=== PATIENT | male | born 1950 | race Two or more races ===

== ENCOUNTER 2017-09-25 04:01 | Inpatient (IN) | payer SELFPAY ==
[~2017-09-25] VITALS: Ht 162.6 cm; Wt 76.8 kg
[2017-09-25] MEDS ORDERED: METHYL SALICYLATE/MENTHOL TOPICAL OINTMENT 29GM TUBE. TP PRN (04:45)
[2017-09-25] MEDS ORDERED: MAGNESIUM HYDROXIDE 2,400 MG/30 ML ORAL.SUSP. PO PRN (04:45)
[2017-09-25] MEDS ORDERED: MAG HYDROX/AL HYDROX/SIMETH 30 ML ORAL.SUSP PO PRN (04:45)
[2017-09-25] MEDS ORDERED: BACL10TA PO (04:51)
[2017-09-25] MEDS ORDERED: DIVA500T9 PO (04:51)
[2017-09-25] MEDS ORDERED: LORA-254 PO ×3 (04:51→05:35)
[2017-09-25] MEDS ORDERED: TAMS0.4C2 PO (04:51)
[2017-09-25] MEDS ORDERED: ASPI-612 PO (04:51)
[2017-09-25] MEDS ORDERED: METF500T5 PO (04:51)
[2017-09-25] MEDS ORDERED: SIMV20TA3 PO (04:51)
[2017-09-25] MEDS ORDERED: GLIP5TAB10 PO (04:51)
[2017-09-25] MEDS ORDERED: AMLO5TAB2 PO (04:51)
[2017-09-25] MEDS ORDERED: LUBI24CA7 PO (04:51)
[2017-09-25] MEDS ORDERED: QUET50TA5 PO (04:51)
[2017-09-25] MEDS ORDERED: LEVO75TA5 PO (04:51)
[2017-09-25] MEDS ORDERED: BENZ-8 PO (04:51)
[2017-09-25] MEDS ORDERED: POLY2500 PO (04:52)
[2017-09-25] MEDS ORDERED: TOLT2CAP PO (04:52)
[2017-09-25] MEDS ORDERED: SERT50TA PO (04:52)
[2017-09-25] MEDS ORDERED: TRAZ50TA15 PO (04:52)
[2017-09-25] MEDS ORDERED: SITA50TA PO (04:52)
[2017-09-25] MEDS ORDERED: traZODone 50 MG TABLET. PO PRN (05:30)
--- NOTE | 2017-09-25 05:33 | NUR ---
Admission Note with Justification for Admission to [facility] Patient admitted to [facility] for protective oversight for emergency stabilization of acute psychiatric crisis. Pt admitted from: Hospital ER Mode of arrival: EMS Accompanied By: EMS Precipitating behaviors that initiated intake and admission: Aggressive behaviors, Hitting head on floor, intrusive with female patients. Description of failure of out patient attempts at stabilization in previous setting list behavior and medication trials: One time order for Catrachita Gilmore, YESSENIA Ativan and Zyprexa Behaviors and assessment findings upon admission: Patient is not fluent in French. Patient states he speaks Farsi. Patient is calm and cooperative with assessment. Patient lung sounds are clear, bowels are active and heart is regular. Patient skin turgor is elastic. Patient has minor abrasions/bruising on legs. Patient points to his toes as if to say they are hurting. Patient requires a single assist when ambulating. Patient is incontinent at times. Patient forgetful of need of assistance when ambulating. Patient currently in day room area. Plan: Admit for protective oversight for adjustment and stabilization of medications, behaviors and mood. Intense treatment regimen including groups, medication adjustments, therapy, consistent regimen for ADL's, self care, and sleep hygiene. Daily monitoring by Inpatient staff, Psychiatry, and Medical Physician.
[2017-09-25 05:45] VITALS: BP 169/94
[2017-09-25] MEDS ORDERED: LORazepam 1 MG TABLET PO PRN (05:45)
[2017-09-25] MEDS: LEVOTHYROXINE 75 MCG TABLET PO SCH (07:25)
[2017-09-25 07:34] LABS: BASO % 0 % (0-3); EOS # 0.2 x10^3/uL (0.0-0.7); EOS % 1 % (0-3); HEMATOCRIT 44.9 % (39.0-53.0); HEMOGLOBIN 15.1 g/dL (13.0-17.5); LYMPH # 1.3 x10^3/uL (1.0-4.8); LYMPH % 13 % (24-48); MEAN CORPUSCULAR HEMOGLOBIN 30 pg (25-35); MEAN CORPUSCULAR HGB CONC 34 g/dL (31-37); MEAN CORPUSCULAR VOLUME 88 fL (79-100); MONO % 9 % (0-9); NEUT # 8.2 x10^3uL (1.8-7.7); NEUT % 77 % (31-73); PLATELET COUNT 245 x10^3/uL (140-400); RED BLOOD COUNT 5.12 x10^6/uL (4.30-5.70); RED CELL DISTRIBUTION WIDTH 16.2 % (11.5-14.5); WHITE BLOOD COUNT 10.7 x10^3/uL (4.0-11.0)
[2017-09-25] MEDS: POLYETHYLENE GLYCOL 3350 17 GM PACKET. PO SCH (07:43)
[2017-09-25] MEDS: OXYBUTYNIN CHLORIDE 5 MG TABLET PO SCH ×2 (07:44→19:42)
[2017-09-25] MEDS: amLODIPine BESYLATE 5 MG TABLET PO SCH (07:44)
[2017-09-25] MEDS: SERTRALINE 50 MG TABLET. PO SCH (07:44)
[2017-09-25] MEDS: metFORMIN 500 MG TABLET PO SCH (07:44)
[2017-09-25] MEDS: ACETAMINOPHEN 325 MG TABLET PO PRN (07:44)
[2017-09-25] MEDS: ASPIRIN ENTERIC COATED 81 MG TABLET.DR. PO SCH (07:44)
[2017-09-25] MEDS: BACLOFEN 10 MG TABLET PO SCH ×3 (07:45→19:42)
[2017-09-25] MEDS: TAMSULOSIN 0.4 MG CAP.ER.24H. PO SCH (07:45)
[2017-09-25] MEDS: glipiZIDE 5 MG TABLET PO SCH (07:45)
[2017-09-25] MEDS: LINAGLIPTIN 5 MG TABLET PO SCH (07:45)
[2017-09-25] MEDS: BENZONATATE 100 MG CAPSULE. PO SCH ×3 (07:46→19:42)
[2017-09-25 07:51] LABS: ALBUMIN 3.8 g/dL (3.4-5.0); ALBUMIN/GLOBULIN RATIO 0.8 (1.0-1.7); CALCIUM 9.1 mg/dL (8.5-10.1); CREATININE 1.4 mg/dL (0.7-1.3); GFR 50.2; POTASSIUM 4.6 mmol/L (3.5-5.1); TOTAL BILIRUBIN 0.5 mg/dL (0.2-1.0); TOTAL PROTEIN 8.3 g/dL (6.4-8.2)
[2017-09-25 07:57] LABS: VAL ACID 22 mcg/mL (50-100)
[2017-09-25] MEDS: LUBIPROSTONE 24 MCG CAPSULE PO SCH ×2 (08:08→17:00)
--- NOTE | 2017-09-25 08:30 | NUR ---
pt up adl in halls. restless, wandering. won't come down to eat. pt took meds with juice. pt tearful. Ativan given.
--- NOTE | 2017-09-25 09:50 | NUR ---
Behavior Intervention Response and Plan: BIRP Note: Behavior: Assumed Care of patient, patient located in Hallway at shift change. Patient exhibited the following behavior Restless, Wandering, Irritable. Brief assessment on rounds of vital signs, medication needs, lab studies, and pain. Treatment plan problems . Intervention: Patient assessed and the following interventions initiated safety checks 15 Minute Checks Cognitive Assessment , Head to toe Assessment , Medications. Response: After interactions and interventions patient responded in the following manner, Disorganized , Wandering ,Compliant. Continue to assess behaviors and condition will continue to monitor throughout the shift as needed. Patient educated on ADL's, and hand hygiene. Plan: Continue to monitor Master Treatment Plan for patient's progress toward short term goals of Decreased Agitation, Decreased Anxiety, [facility] goals to return to previous living setting vs placement. Continue to assess patient for changes in above assessment. Monitor for medication needs, pain, and safety concerns. Hourly rounding performed to ensure safe environment.
--- NOTE | 2017-09-25 10:51 | NUR ---
Insurance Pt initially identified as self pay by [facility]. Upon further investigation by this SW, pt is a resident at [facility] of [facility]. MELISSA contacted MELISSA at [facility] and requested copy of pt's Admission Record that states pt has [facility] for Primary Insurance only. MELISSA submitted this information to registration who ran it thru relay and discovered the insurance is currently inactive as of 08/17/17. MELISSA contacted [facility] to speak w/a in the billing department and was told the person was not in the office today. SW will f/u on Thursday to inquire if the facility has already resubmitted for the insurance to be reinstated. This facility is out of network with [facility]. This SW is unable to obtain any kind of authorization for this stay, or request a single case agreement at this time, or request a transfer to another facility that is in network for the pt as pt's insurance is currently inactive. Pt will be registered as self pay until the insurance has been reinstated. [facility] is able to retro bill once reinstated, however, w/o prior authorization for this stay, it is unclear if this stay will be covered. It should also be noted when this SW spoke w/MELISSA Soria at [facility], MELISSA was told pt's family dropped pt off at [facility] in May, and has rarely visited or contacted pt since. Estella stated family has very little involvement w/pt and this has created much of the pt's depression.
--- NOTE | 2017-09-25 11:15 | NUR ---
pt restless and tearful. unsteady on feet. not using walker and if he does is throwing it. Pt wanted to use phone. called contact numbers and pt refused to talk on phone but wanted the phone to try and dial numbers. attempted to keep him day room. becoming agitated and throwing self to floor. almost fell to floor. 1:1 ordered and zydis ordered.
--- NOTE | 2017-09-25 11:30 | NUR ---
zydis given assisted to bed. very resistive.
[2017-09-25 14:07] LABS: THYROID STIM HORMONE (TSH) 5.424 uIU/mL (0.358-3.740)
--- NOTE | 2017-09-25 14:30 | NUR ---
MELISSA has attempted to contact pt's dtr, Tessie @ [phone] and pt's son who resides in [place] at [phone] to discuss plans as pt does not have insurance coverage at this time. MELISSA has also contacted [facility] to further discuss the need for pt to return to the facility today due to pt's lack of insurance and the discuss had earlier w/pt's son, Nehemias. Nehemias eluded to the family's inability to pay privately for pt to remain at this facility. Nehemias was concerned pt's Medicaid had lapsed and he would be private pay while at this facility. Nehemias was very thankful for this SW's phone call to discuss pt's private pay status as pt's would be unable to afford pt's stay at this time. MELISSA spoke w/SEGUNDO Johnson at [facility] regarding pt's return today and she stated she would return a call to this SW.
--- NOTE | 2017-09-25 15:00 | NUR ---
MELISSA discussed concerns w/Dr. Diaz regarding pt's self pay status and mental health needs while on this unit. Dr. Diaz does provide psychiatric services at [facility] and would be able to follow pt at the facility. Dr. Diaz will provide initial assessment and MELISSA will f/u w/[facility] w/plans.
--- NOTE | 2017-09-25 15:35 | NUR ---
MELISSA received a return call from Britta, Charge Nurse at [facility] to further discuss dc plans for pt to return to [facility] today due to pt's family's inability to privately pay while at this facility. Britta stated her dismay w/this facility for refusing to provided a needed service for the pt due to his lack of insurance. This SW was VERY clear and repeated several times this facility was NOT refusing to provide services to this pt, rather, the pt's son, Nehemias, stated they would not be able to afford for pt to remain private pay at this facility for services that could be managed w/medication adjustments at the facility. SW had informed Nehemias the Psychiatrist at this facility also provides services at [facility] and could follow pt upon return to the facility. Pt has been comfortable all afternoon after receiving medications and would have a slight medication adjustment upon returning back to the facility. Per Dr. Diaz, pt would be fine returning to the facility today. Britta presented argumentative w/this SW and stated they would not be able to accept pt back as he is a danger to himself and others. MELISSA stated pt is their resident and they were obligated to accept pt back upon our dc. Britta stated she would be contacting pt's family and discussing their concerns and possibly discharge plans for pt. SW reminded Britta they had to provide family w/a 30 day notice to family if they felt they could not meet pt's needs. Britta stated this hospital was not meeting pt's needs and then hung up on this SW.
[2017-09-25 15:52] VITALS: BP 94/59
--- NOTE | 2017-09-25 15:59 | NUR ---
MELISSA has worked on this case all day to advocate on behalf of pt's rights for mental health needs and financial safety. Pt's [employer] lapsed at the end of July. MELISSA has attempted to contact pt's family to inquired about alternative insurance. Melissa was provided w/a face sheet from [facility] that included phone numbers for pt's 2 sons, Joseph and Nehemias. The numbers are different then the numbers provided at intake. SW has called the numbers and left messages. SW received a return message from a number originally provided at intake and was told by the person it was not a family member and ultimately was a wrong number. SW contacted Registration and had the number removed. MELISSA then contacted Nehemias at [phone] who resides in [place]. MELISSA explained the current situation and requested assistance in reaching pt's family who resides in the [facility]. Nehemias was unaware of pt's recent insurance lapse and stated pt did not have any other form of payment for this hospital stay. Pt's does not speak Uzbek and would require his sister, Tessie @ [phone] to assist in translating while speaking w/this MELISSA. Nehemias was very thankful for this SW contacting him to further discuss the financial concerns as they would not be able to afford pt's stay at this hospital w/o pt's Medicaid being active. Nehemias will contact his mother to explain the current situation and then contact his sister, Tessie and provide this SW's contact information for her to call and f/u to continue to work on possible dc plan. MELISSA stated if pt continues to remain at this facility, he would be private pay. A payment plan could be arranged w/the family and SW could provide a contact phone number for pt's and sister to call for additional information or this SW could make arrangements for the pt to return to [facility] today.
--- NOTE | 2017-09-25 16:02 | PDOC ---
Exam Note: Will Note: Please also refer to the separate dictated note~for this date of service dictated separately.~Patient seen individually. Discussed the patient with Nursing staff reviewed the chart.~Reviewed interim history and current functioning. Reviewed vital signs,~Labs/ Radiology~and current medications noted below. Continue current treatment with the changes noted in the dictated addendum note Assessment: Vital Signs: Vital Signs Date Time Temp Pulse Resp B/P (MAP) Pulse Ox O2 Delivery O2 Flow Rate FiO2 09/25/17 15:52 98.4 82 16 94/59 (71) 100 Labs: Laboratory Tests Test 09/25/17 07:08 09/25/17 07:21 White Blood Count 10.7 x10^3/uL (4.0-11.0) Red Blood Count 5.12 x10^6/uL (4.30-5.70) Hemoglobin 15.1 g/dL (13.0-17.5) Hematocrit 44.9 % (39.0-53.0) Mean Corpuscular Volume 88 fL (79-100) Mean Corpuscular Hemoglobin 30 pg (25-35) Mean Corpuscular Hemoglobin Concent 34 g/dL (31-37) Red Cell Distribution Width 16.2 % (11.5-14.5) H Platelet Count 245 x10^3/uL (140-400) Neutrophils (%) (Auto) 77 % (31-73) H Lymphocytes (%) (Auto) 13 % (24-48) L Monocytes (%) (Auto) 9 % (0-9) Eosinophils (%) (Auto) 1 % (0-3) Basophils (%) (Auto) 0 % (0-3) Neutrophils # (Auto) 8.2 x10^3uL (1.8-7.7) H Lymphocytes # (Auto) 1.3 x10^3/uL (1.0-4.8) Monocytes # (Auto) 1.0 x10^3/uL (0.0-1.1) Eosinophils # (Auto) 0.2 x10^3/uL (0.0-0.7) Basophils # (Auto) 0.0 x10^3/uL (0.0-0.2) Sodium Level 139 mmol/L (136-145) Potassium Level 4.6 mmol/L (3.5-5.1) Chloride Level 103 mmol/L (98-107) Carbon Dioxide Level 25 mmol/L (21-32) Anion Gap 11 (6-14) Blood Urea Nitrogen 23 mg/dL (8-26) Creatinine 1.4 mg/dL (0.7-1.3) H Estimated GFR (Cockcroft-Gault) 50.2 BUN/Creatinine Ratio 16 (6-20) Glucose Level 237 mg/dL (70-99) H Calcium Level 9.1 mg/dL (8.5-10.1) Magnesium Level 2.0 mg/dL (1.8-2.4) Iron Level 47 ug/dL (65-175) L Total Iron Binding Capacity 343 ug/dL (250-450) Iron Saturation 14 % (15-34) L Total Bilirubin 0.5 mg/dL (0.2-1.0) Aspartate Amino Transferase (AST) 15 U/L (15-37) Alanine Aminotransferase (ALT) 23 U/L (16-63) Alkaline Phosphatase 88 U/L (46-116) Total Protein 8.3 g/dL (6.4-8.2) H Albumin 3.8 g/dL (3.4-5.0) Albumin/Globulin Ratio 0.8 (1.0-1.7) L Triglycerides Level 114 mg/dL (0-150) Cholesterol Level 164 mg/dL (0-200) LDL Cholesterol, Calculated 96 mg/dL (0-100) VLDL Cholesterol, Calculated 22 mg/dL (0-40) Non-HDL Cholesterol Calculated 118 mg/dL (0-129) HDL Cholesterol 46 mg/dL (40-60) Cholesterol/HDL Ratio 3.0 Thyroid Stimulating Hormone (TSH) 5.424 uIU/mL (0.358-3.740) Valproic Acid Level 22 mcg/mL (50-100) L Valproic Acid Last Dose Date 09/24/2017 Valproic Acid Last Dose Time 2100 Glucose (Fingerstick) 266 mg/dL (70-99) H Current Medications: Meds: Current Medications Acetaminophen (Tylenol) 650 mg PRN Q6HRS PRN PO PAIN / TEMP Last administered on 09/25/17at 07:44; Start 09/25/17 at 04:45 Multi-Ingredient Ointment (Analgesic [place]) 1 radha PRN QID PRN TP MUSCLE PAIN; Start 09/25/17 at 04:45 Al Hydroxide/Mg Hydroxide (Mylanta Plus Xs) 15 ml PRN AFTMEALHC PRN PO DYSPEPSIA; Start 09/25/17 at 04:45 Magnesium Hydroxide (Milk Of Magnesia) 2,400 mg PRN QHS PRN PO CONSTIPATION; Start 09/25/17 at 04:45 Sertraline HCl (Zoloft) 150 mg DAILY PO Last administered on 09/25/17at 07:44; Start 09/25/17 at 09:00 Divalproex Sodium (Depakote) 500 mg BID PO ; Start 09/26/17 at 09:00; Stop at 09:00; Status DC Quetiapine Fumarate (SEROquel) 100 mg QHS PO ; Start 09/25/17 at 21:00 Trazodone HCl (Desyrel) 50 mg PRN QHS PRN PO INSOMNIA; Start 09/25/17 at 05:30 Lorazepam (Ativan) 1 mg PRN BID PRN PO ANXIETY / AGITATION Last administered on 09/25/17at 08:00; Start 09/25/17 at 05:45 Levothyroxine Sodium (Synthroid) 75 mcg DAILY06 PO Last administered on 07:25; Start 09/25/17 at 06:00 Lubiprostone (Amitiza) 24 mcg BIDWMEALS PO Last administered on 09/25/17at 08:08 ; Start 09/25/17 at 08:00 Tamsulosin HCl (Flomax) 0.4 mg DAILY PO Last administered on 09/25/17at 07:45; Start 09/25/17 at 09:00 Amlodipine Besylate (Norvasc) 5 mg DAILY PO Last administered on 09/25/17 07:44 ; Start 09/25/17 at 09:00 Aspirin (Aspirin Enteric Coated) 81 mg DAILYWBKFT PO Last administered on at 07:44; Start 09/25/17 at 08:00 Baclofen (Lioresal) 10 mg TID PO Last administered on 09/25/17 15:01; Start 09/25/17 at 09:00 Benzonatate (Tessalon Perle) 100 mg [id number] PO Last administered on 6/8/18at 15: 01; Start 09/25/17 at 09:00 Glipizide (Glucotrol) 2.5 mg DAILY08 PO Last administered on 09/25/17at 07:45; Start 09/25/17 at 08:00 Metformin HCl (Glucophage) 500 mg DAILY08 PO Last administered on 09/25/17at 07: 44; Start 09/25/17 at 08:00 Polyethylene Glycol (miraLAX) 17 gm DAILY PO Last administered on 09/25/17at 07: 43; Start 09/25/17 at 09:00 Simvastatin (Zocor) 20 mg HS PO ; Start 09/25/17 at 21:00 Linagliptin (Tradjenta) 5 mg DAILY PO Last administered on 09/25/17at 07:45; Start 09/25/17 at 09:00 Oxybutynin Chloride (Ditropan) 5 mg BID PO Last administered on 09/25/17at 07:44 ; Start 09/25/17 at 09:00 Olanzapine (ZyPREXA ZYDIS) 2.5 mg PRN Q2HR PRN PO ANXIETY / AGITATION Last administered on 09/25/17at 11:31; Start 09/25/17 at 11:15 Divalproex Sodium (Depakote) 500 mg DAILY PO ; Start 09/26/17 at 09:00 Divalproex Sodium (Depakote) 750 mg QHS PO ; Start 09/25/17 at 21:00 Quetiapine Fumarate (SEROquel) 25 mg BID@0900,1700 PO ; Start 09/25/17 at 17:00 Active Scripts Active Reported Lorazepam 1 Mg Tablet 1 Tab PO BID PRN Detrol La (Tolterodine Tartrate) 2 Mg Cap.er.24h 2 Mg PO DAILY Trazodone Hcl 50 Mg Tablet 50 Mg PO QHS PRN Polyethylene Glycol 3350 2,500 Gm Powder 17 Gm PO DAILY Januvia (Sitagliptin Phosphate) 50 Mg Tablet 50 Mg PO DAILY Zoloft (Sertraline Hcl) 50 Mg Tablet 150 Mg PO DAILY Simvastatin 20 Mg Tablet 20 Mg PO HS Benzonatate 100 Mg Capsule 100 Mg PO TID Aspirin Ec (Aspirin) 81 Mg Tablet.dr 81 Mg PO DAILY Seroquel (Quetiapine Fumarate) 50 Mg Tablet 100 Mg PO QHS Amlodipine Besylate 5 Mg Tablet 5 Mg PO DAILY Divalproex Sodium 500 Mg Tablet.dr 500 Mg PO BID Levothyroxine Sodium 75 Mcg Tablet 75 Mcg PO DAILY06 Baclofen 10 Mg Tablet 10 Mg PO TID Metformin Hcl 500 Mg Tablet 500 Mg PO DAILY Amitiza (Lubiprostone) 24 Mcg Capsule 24 Mcg PO BID Tamsulosin Hcl 0.4 Mg Cap.er.24h 0.4 Mg PO DAILY Glipizide 5 Mg Tablet 2.5 Mg PO DAILY I have reviewed the current psychotropics carefully including drug interactions. Risk benefit ratio favors no change other than as noted in my dictated progress note. Diagnosis: Problems: (1) Anxiety disorder (2) Impulse control disorder (3) Dementia, vascular, with delusions (4) Dementia, vascular, with depression (5) Dementia in Alzheimer's disease with delusions (6) Dementia in Alzheimer's disease with depression SARAH BLANTON MD Sep 25, 2017 16:01
[2017-09-25] MEDS: QUEtiapine 25 MG TABLET. PO SCH (17:00)
--- NOTE | 2017-09-25 17:07 | NUR ---
pt has been restless and wandering. 1:1 staff at side. pt incontinent of bladder. resting quietly in bed.
--- NOTE | 2017-09-25 17:22 | NUR ---
MELISSA has been unable to contact any of pt's family members to confirm pt's private pay status and wishes to return pt to facility today. MELISSA left a message for pt's son, Nehemias @ [phone] inquiring if he was able to reach pt's or dtr to further discuss issue w/private pay status. MELISSA was also unable to make transportation arrangements w/[facility] as Britta, Charge Nurse at [facility] hung up on earlier this afternoon. Violette, Former Hand also attempted to contact [facility]man to confirm approval for this facility to provide payment for transportation of [facility] declines to transport patient today. Violette was unable to reach [facility] for approval at this time. Due to confirmation from family on private payment or return to facility and transportation either by [facility] or this facility, pt will remain at this facility until further dc planning can be arranged.
[2017-09-25] MEDS: QUEtiapine 100 MG TABLET. PO SCH (19:44)
[2017-09-25] MEDS: SIMVASTATIN 20 MG TABLET PO SCH (19:44)
[2017-09-25] MEDS: DIVALPROEX SODIUM 250 MG TABLET.DR. PO SCH (19:44)
--- NOTE | 2017-09-25 20:00 | NUR ---
Behavior Intervention Response and Plan: BIRP Note: Behavior: Assumed Care of patient, patient located in Day Room at shift change. Patient exhibited the following behavior Calm, Compliant, Appropriate. Brief assessment on rounds of vital signs, medication needs, lab studies, and pain. Treatment plan problems 1. Intervention: Patient assessed and the following interventions initiated safety checks 1-1 Observation Cognitive Assessment , Head to toe Assessment , Call wright in reach. Response: After interactions and interventions patient responded in the following manner, Calm , Disorganized ,Sleeping. Continue to assess behaviors and condition will continue to monitor throughout the shift as needed. Patient educated on ADL's, and hand hygiene. Plan: Continue to monitor Master Treatment Plan for patient's progress toward short term goals of Decreased Agitation, Decreased Anxiety, correction goals to return to previous living setting vs placement. Continue to assess patient for changes in above assessment. Monitor for medication needs, pain, and safety concerns. Hourly rounding performed to ensure safe environment.
[2017-09-25 22:11] LABS: THYROXINE 5.3 ug/dL (4.5-12.0)
--- NOTE | 2017-09-25 23:11 | PDOC ---
Exam Note: Will Note: Please also refer to the separate dictated note~for this date of service dictated separately.~Patient seen individually. Discussed the patient with Nursing staff reviewed the chart.~Reviewed interim history and current functioning. Reviewed vital signs,~Labs/ Radiology~and current medications noted below. Continue current treatment with the changes noted in the dictated addendum note Assessment: Vital Signs: Vital Signs Date Time Temp Pulse Resp B/P (MAP) Pulse Ox O2 Delivery O2 Flow Rate FiO2 09/25/17 15:52 98.4 82 16 94/59 (71) 100 Labs: Laboratory Tests Test 09/25/17 07:08 09/25/17 07:21 White Blood Count 10.7 x10^3/uL (4.0-11.0) Red Blood Count 5.12 x10^6/uL (4.30-5.70) Hemoglobin 15.1 g/dL (13.0-17.5) Hematocrit 44.9 % (39.0-53.0) Mean Corpuscular Volume 88 fL (79-100) Mean Corpuscular Hemoglobin 30 pg (25-35) Mean Corpuscular Hemoglobin Concent 34 g/dL (31-37) Red Cell Distribution Width 16.2 % (11.5-14.5) H Platelet Count 245 x10^3/uL (140-400) Neutrophils (%) (Auto) 77 % (31-73) H Lymphocytes (%) (Auto) 13 % (24-48) L Monocytes (%) (Auto) 9 % (0-9) Eosinophils (%) (Auto) 1 % (0-3) Basophils (%) (Auto) 0 % (0-3) Neutrophils # (Auto) 8.2 x10^3uL (1.8-7.7) H Lymphocytes # (Auto) 1.3 x10^3/uL (1.0-4.8) Monocytes # (Auto) 1.0 x10^3/uL (0.0-1.1) Eosinophils # (Auto) 0.2 x10^3/uL (0.0-0.7) Basophils # (Auto) 0.0 x10^3/uL (0.0-0.2) Sodium Level 139 mmol/L (136-145) Potassium Level 4.6 mmol/L (3.5-5.1) Chloride Level 103 mmol/L (98-107) Carbon Dioxide Level 25 mmol/L (21-32) Anion Gap 11 (6-14) Blood Urea Nitrogen 23 mg/dL (8-26) Creatinine 1.4 mg/dL (0.7-1.3) H Estimated GFR (Cockcroft-Gault) 50.2 BUN/Creatinine Ratio 16 (6-20) Glucose Level 237 mg/dL (70-99) H Calcium Level 9.1 mg/dL (8.5-10.1) Magnesium Level 2.0 mg/dL (1.8-2.4) Iron Level 47 ug/dL (65-175) L Total Iron Binding Capacity 343 ug/dL (250-450) Iron Saturation 14 % (15-34) L Total Bilirubin 0.5 mg/dL (0.2-1.0) Aspartate Amino Transferase (AST) 15 U/L (15-37) Alanine Aminotransferase (ALT) 23 U/L (16-63) Alkaline Phosphatase 88 U/L (46-116) Total Protein 8.3 g/dL (6.4-8.2) H Albumin 3.8 g/dL (3.4-5.0) Albumin/Globulin Ratio 0.8 (1.0-1.7) L Triglycerides Level 114 mg/dL (0-150) Cholesterol Level 164 mg/dL (0-200) LDL Cholesterol, Calculated 96 mg/dL (0-100) VLDL Cholesterol, Calculated 22 mg/dL (0-40) Non-HDL Cholesterol Calculated 118 mg/dL (0-129) HDL Cholesterol 46 mg/dL (40-60) Cholesterol/HDL Ratio 3.0 Vitamin B12 Level 446 pg/mL (247-911) 25-Hydroxy Vitamin D Total 8.6 ng/mL (30-100) L Thyroid Stimulating Hormone (TSH) 5.424 uIU/mL (0.358-3.740) Thyroxine (T4) 5.3 ug/dL (4.5-12.0) Total Triiodothyronine (TT3) 88 ng/dL (71-180) Valproic Acid Level 22 mcg/mL (50-100) L Valproic Acid Last Dose Date 09/24/2017 Valproic Acid Last Dose Time 2100 Treponema pallidum Antibody Nonreactive (Nonreactive) Glucose (Fingerstick) 266 mg/dL (70-99) H Current Medications: Meds: Current Medications Acetaminophen (Tylenol) 650 mg PRN Q6HRS PRN PO PAIN / TEMP Last administered on 09/25/17at 07:44; Start 09/25/17 at 04:45 Multi-Ingredient Ointment (Analgesic [place]) 1 radha PRN QID PRN TP MUSCLE PAIN; Start 09/25/17 at 04:45 Al Hydroxide/Mg Hydroxide (Mylanta Plus Xs) 15 ml PRN AFTMEALHC PRN PO DYSPEPSIA; Start 09/25/17 at 04:45 Magnesium Hydroxide (Milk Of Magnesia) 2,400 mg PRN QHS PRN PO CONSTIPATION; Start 09/25/17 at 04:45 Sertraline HCl (Zoloft) 150 mg DAILY PO Last administered on 09/25/17at 07:44; Start 09/25/17 at 09:00 Divalproex Sodium (Depakote) 500 mg BID PO ; Start 09/26/17 at 09:00; Stop at 09:00; Status DC Quetiapine Fumarate (SEROquel) 100 mg QHS PO Last administered on 09/25/17at 19: 44; Start 09/25/17 at 21:00 Trazodone HCl (Desyrel) 50 mg PRN QHS PRN PO INSOMNIA; Start 09/25/17 at 05:30 Lorazepam (Ativan) 1 mg PRN BID PRN PO ANXIETY / AGITATION Last administered on 09/25/17at 08:00; Start 09/25/17 at 05:45 Levothyroxine Sodium (Synthroid) 75 mcg DAILY06 PO Last administered on at 07:25; Start 09/25/17 at 06:00 Lubiprostone (Amitiza) 24 mcg BIDWMEALS PO Last administered on 09/25/17 08:08 ; Start 09/25/17 at 08:00 Tamsulosin HCl (Flomax) 0.4 mg DAILY PO Last administered on 09/25/17at 07:45; Start 09/25/17 at 09:00 Amlodipine Besylate (Norvasc) 5 mg DAILY PO Last administered on 09/25/17at 07:44 ; Start 09/25/17 at 09:00 Aspirin (Aspirin Enteric Coated) 81 mg [id number] PO Last administered on 07:44; Start 09/25/17 at 08:00 Baclofen (Lioresal) 10 mg TID PO Last administered on 09/25/17 19:42; Start 09/25/17 at 09:00 Benzonatate (Tessalon Perle) 100 mg DLM231 PO Last administered on 09/25/17 19: 42; Start 09/25/17 at 09:00 Glipizide (Glucotrol) 2.5 mg DAILY08 PO Last administered on 09/25/17 07:45; Start 09/25/17 at 08:00 Metformin HCl (Glucophage) 500 mg DAILY08 PO Last administered on 09/25/17 07: 44; Start 09/25/17 at 08:00 Polyethylene Glycol (miraLAX) 17 gm DAILY PO Last administered on 09/25/17 07: 43; Start 09/25/17 at 09:00 Simvastatin (Zocor) 20 mg HS PO Last administered on 09/25/17 19:44; Start 09/25 at 21:00 Linagliptin (Tradjenta) 5 mg DAILY PO Last administered on 09/25/17 07:45; Start 09/25/17 at 09:00 Oxybutynin Chloride (Ditropan) 5 mg BID PO Last administered on 09/25/17 19:42 ; Start 09/25/17 at 09:00 Olanzapine (ZyPREXA ZYDIS) 2.5 mg PRN Q2HR PRN PO ANXIETY / AGITATION Last administered on 09/25/17at 11:31; Start 09/25/17 at 11:15 Divalproex Sodium (Depakote) 500 mg DAILY PO ; Start 09/26/17 at 09:00 Divalproex Sodium (Depakote) 750 mg QHS PO Last administered on 09/25/17 19:44 ; Start 09/25/17 at 21:00 Quetiapine Fumarate (SEROquel) 25 mg BID@0900,1700 PO ; Start 09/25/17 at 17:00 Active Scripts Active Reported Lorazepam 1 Mg Tablet 1 Tab PO BID PRN Detrol La (Tolterodine Tartrate) 2 Mg Cap.er.24h 2 Mg PO DAILY Trazodone Hcl 50 Mg Tablet 50 Mg PO QHS PRN Polyethylene Glycol 3350 2,500 Gm Powder 17 Gm PO DAILY Januvia (Sitagliptin Phosphate) 50 Mg Tablet 50 Mg PO DAILY Zoloft (Sertraline Hcl) 50 Mg Tablet 150 Mg PO DAILY Simvastatin 20 Mg Tablet 20 Mg PO HS Benzonatate 100 Mg Capsule 100 Mg PO TID Aspirin Ec (Aspirin) 81 Mg Tablet.dr 81 Mg PO DAILY Seroquel (Quetiapine Fumarate) 50 Mg Tablet 100 Mg PO QHS Amlodipine Besylate 5 Mg Tablet 5 Mg PO DAILY Divalproex Sodium 500 Mg Tablet.dr 500 Mg PO BID Levothyroxine Sodium 75 Mcg Tablet 75 Mcg PO DAILY06 Baclofen 10 Mg Tablet 10 Mg PO TID Metformin Hcl 500 Mg Tablet 500 Mg PO DAILY Amitiza (Lubiprostone) 24 Mcg Capsule 24 Mcg PO BID Tamsulosin Hcl 0.4 Mg Cap.er.24h 0.4 Mg PO DAILY Glipizide 5 Mg Tablet 2.5 Mg PO DAILY I have reviewed the current psychotropics carefully including drug interactions. Risk benefit ratio favors no change other than as noted in my dictated progress note. Diagnosis: Problems: (1) Anxiety disorder (2) Impulse control disorder (3) Dementia, vascular, with depression (4) Dementia, vascular, with delusions (5) Dementia in Alzheimer's disease with depression (6) Dementia in Alzheimer's disease with delusions SARAH BLANTON MD Sep 25, 2017 23:11
--- NOTE | 2017-09-25 23:20 | HP ---
ADMIT DATE: 09/25/2017 PSYCHIATRIC ADMISSION HISTORY/DISCHARGE SUMMARY IDENTIFYING DATA: The patient is a 67-year-old male of descent, referred to us from the [facility] Emergency Room where he presented from [facility] in [place], [place] on account of increasingly aggressive behaviors, hitting his head on the floor, intrusive with female resident. Per social service staff report, retirement staff had called us earlier in the day on account of the above symptoms. The patient was quite confused, did not have an active power of ip technology transactions attorney and while this was being clarified, he was sent to the Emergency Room. 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 The patient does not speak any Syriac. Reportedly, speaks Farsi and the history was obtained through a [employer] radha. CHIEF COMPLAINT: "Thank you." The patient responded after I introduced myself and told him who I was and wanted to get a history from him. Much of the information was obtained from social service and nursing staff including Violette Ramos, RN nurse plant production manager, Diana social service staff and nursing staff including Abdi who was the nursing staff middle of last night, gathering information from the ER in the retirement. HISTORY OF PRESENT ILLNESS: Reportedly, the patient has been residing at the retirement for a short period of time. Over the last brief period, he has been getting more frustrated at the retirement, quite confused and reportedly has been hitting his head on the floor, aggressive and intrusive with female residents. He has had some sleep and appetite changes. Adjustments were made in his psychotropics. He did receive one time order for Haldol 3 mg and then Seroquel was initiated 50 mg at bedtime and Ativan was discontinued as it seemed to be causing paradoxical disinhibition. Zyprexa was added and he was also on Depakote Sprinkles 250 mg twice a day, 500 mg at bedtime and valproic acid level at the time of admission to our unit is subtherapeutic. No clear history of bipolar disorder or homicidal ideation. At the time I met him, there was no evidence of suicidal ideation and for several hours prior to that while on the unit, he has been fairly cooperative with no behaviors reflective of active danger to self or others. He was somewhat agitated earlier in the morning and received Zyprexa with good effect. PAST PSYCHIATRIC HISTORY: As above. MEDICAL HISTORY: Hypertension, diabetes mellitus, kidney disease, muscle weakness. Accu-Cheks daily. DIET: Regular. Ambulates x 1 assist. UA is negative. DRUG ALLERGIES: Negative. CODE STATUS: Full code. FAMILY HISTORY: Noncontributory. SOCIAL HISTORY: The patient does not have a power of ip technology transactions attorney and signed by himself, though he is quite confused at the time of my evaluation. He has a daughter and a son who is the social service staff I contacted during this brief hospitalization. No alcohol or drug abuse, physical, sexual or elder abuse history is noted. Not known to be a perpetrator. MENTAL STATUS EXAM: The patient was seen individually in the evening of 09/25/2017. He is oriented to himself; otherwise, pleasant, often verbal responses monosyllabic. He repeatedly said "thank you" to me as I sat with him for the evaluation. Insight, judgment, recent and remote memory, attention, concentration, fund of knowledge poor, consistent with his diagnosis. IMPRESSION: Major neurocognitive disorder, possibly vascular with delusion, depression, behavioral disturbance; anxiety disorder, unspecified; impulse control disorder, unspecified. Rest as above. PLAN/CLINICAL COURSE: I met with the patient evening of 09/25/2017. Prior to this about an hour earlier, I had been called by Violette Ramos, RN nurse plant production manager and Diana Humphreys, social service staff. The patient has been fairly compliant, cooperative on the unit, confused, unable to participate in groups or other activities because of his language deficits. Communication with nursing staff is very limited again because of his communication problems due to Farsi language. No suicidal or homicidal ideation noted. The patient's valproic acid level is subtherapeutic and we will increase the Depakote to 500 mg in a.m., 750 mg at bedtime. CBC, CMP, valproic acid, ammonia level to be checked in one week. We will also continue Seroquel 50 mg at bedtime and start Seroquel 25 mg at 09:00 a.m. and 1 p.m. to 5 p.m. to help with his mood lability, which is already improved and fairly stable on the unit. Given the patient's lack of ability to participate in groups and other activities on the unit due to language problems and the fact that he is not aggressive with no active suicidal ideation and otherwise stable, further ongoing treatment can be provided back at the retirement and staff will coordinate this. DISCHARGE MEDICATIONS: Please refer to the MRAD. FOLLOWUP: Outpatient psychiatric and medical followup at the retirement. SARAH BLANTON MD DR: CHRIS/sofya JOB#: [id number] / [id number]
--- NOTE | 2017-09-25 23:51 | CONS ---
DATE OF CONSULTATION: 09/25/2017 REASON FOR CONSULTATION: Medical management. HISTORY OF PRESENT ILLNESS: The patient is a 67-year-old [place] descent who speaks only Korean language who apparently resides at [facility] who was [facility] after he was evaluated in [facility] Emergency Room on the account of hitting his head on the floor and arambula and increased aggression. All this in a background of impulse control disorder and unfortunately, the language barrier makes it difficult to understand what he feels and why he is doing. PAST MEDICAL HISTORY: Significant for hypertension, diabetes, chronic kidney disease, and muscle weakness. PAST SURGICAL HISTORY: Unobtainable. FAMILY HISTORY: Unobtainable. SOCIAL HISTORY: Also, unobtainable except the fact that his family left him in this half-way facility, in fact he does not have even a DPOA. ALLERGIES: The patient has no known drug allergy. MEDICATIONS: He is currently on following medications: He is on tamsulosin 0.4 mg at bedtime, baclofen 10 mg 3 times a day, simvastatin 20 mg at bedtime, amlodipine 5 mg once a day, aspirin 81 mg once a day, divalproex 500 mg twice a day, sertraline 150 mg daily, trazodone 50 mg at bedtime, quetiapine fumarate 100 mg at bedtime, lorazepam 1 mg p.o. b.i.d., benzonatate 100 mg 3 times a day, Amitiza 24 mcg p.o. b.i.d., metformin 500 mg daily, sitagliptin for Januvia 50 mg once a day, glipizide 2.5 mg daily, levothyroxine sodium 75 mcg once a day, Detrol-LA 2 mg daily, polyethylene glycol 17 grams daily. REVIEW OF SYSTEMS: Unobtainable. PHYSICAL EXAMINATION: GENERAL: On examining him, he was resting flat, comfortably in bed, in no apparent distress. No pallor, jaundice, cyanosis, or thyromegaly. No jugular venous distention. No lower limb edema. VITAL SIGNS: His heart rate was 82, blood pressure was 94/59, temperature was 98.4, respiratory rate was 16, and oxygen saturation was 100%. HEAD, EYES, EARS, NOSE, AND THROAT: Showed normocephalic, atraumatic. NECK: Supple. HEART: Showed normal first and second heart sound. No gallop, rub, or murmur. CHEST: Clear to auscultation. No crepitation or rhonchi. ABDOMEN: Scaphoid, soft, nontender. NEUROLOGIC: He was sleepy, in fact is very lethargic, but arousable. All cranial nerves intact. He moves extremities without difficulty. I have not really seen him walking. LABORATORY DATA: Showed a white cell count of 10,700, hemoglobin 15, hematocrit 45, MCV 88, and platelet count 245,000 with normal manual differential. His chemistry showed a serum sodium 139, potassium 4.6, chloride 103, bicarbonate 25, anion gap of 11, BUN 23, creatinine 1.4, estimated GFR was 50 mL per minute. His glucose was 237. Calcium was 9.1, magnesium 2. Serum iron 47, TIBC was 343 and percent saturation was 14. Her total bilirubin, AST, ALT, alkaline phosphatase normal. Total protein was 8.3, albumin 3.6. Serum triglycerides 114, total cholesterol was 164, LDL was 96, VLDL was 22, HDL cholesterol 46 and the ratio was 3. His vitamin B12 was 446, and 25-hydroxy vitamin D was 8.6. TSH slightly elevated at 5.4. His valproic acid serum level was subtherapeutic and nonreactive. IMPRESSION: In summary, this is a 67-year-old [place] of [place] descent, who was admitted on account of hitting his head on the floor and wall with increased aggression in a background of impulse control. He is here for inpatient psychiatric stabilization. His medical history is significant for benign prostatic hypertrophy, hypertension, diabetes mellitus, hypothyroidism, constipation, and overactive bladder. He has also vitamin D deficiency. PLAN: My plan is to start him on cholecalciferol and follow his pending labs. I will also check his TSH, T3, and free T4 to make sure he is euthyroid. Thank you, Dr. Diaz for allowing me to participate in the care of this patient. MAGALY SANCHES MD DR: LAZARUS/sofya JOB#: [id number] / [id number]
[2017-09-26 03:09] LABS: HEMOGLOBIN A1C 5.6 % (4.8-5.6)
[2017-09-26] MEDS: LEVOTHYROXINE 75 MCG TABLET PO SCH (06:14)
[2017-09-26 06:23] VITALS: BP 124/70
[2017-09-26 07:27] LABS: BILIRUBIN,URINE NEG (NEG); CLARITY,URINE CLEAR; COLOR,URINE AMBER; GLUCOSE,URINE NEG (NEG); NITRITE,URINE NEG (NEG); UROBILINOGEN,URINE 1 mg/dL (0.2 mg/dL)
[2017-09-26 07:28] LABS: BACTERIA,URINE FEW /HPF (0-FEW); GRANULAR CASTS,URINE OCC /HPF; HYALINE CASTS, URINE FEW /HPF; RBC,URINE OCC /HPF (0-2); SQUAMOUS EPITHELIAL CELL,UR FEW /LPF
[2017-09-26] MEDS: POLYETHYLENE GLYCOL 3350 17 GM PACKET. PO SCH (08:22)
[2017-09-26] MEDS: ASPIRIN ENTERIC COATED 81 MG TABLET.DR. PO SCH (08:24)
[2017-09-26] MEDS: amLODIPine BESYLATE 5 MG TABLET PO SCH (08:24)
[2017-09-26] MEDS: BENZONATATE 100 MG CAPSULE. PO SCH ×3 (08:24→21:04)
[2017-09-26] MEDS: QUEtiapine 25 MG TABLET. PO SCH ×2 (08:24→17:43)
[2017-09-26] MEDS: BACLOFEN 10 MG TABLET PO SCH ×3 (08:24→21:04)
[2017-09-26] MEDS: SERTRALINE 50 MG TABLET. PO SCH (08:24)
[2017-09-26] MEDS: glipiZIDE 5 MG TABLET PO SCH (08:24)
[2017-09-26] MEDS: metFORMIN 500 MG TABLET PO SCH (08:24)
[2017-09-26] MEDS: LINAGLIPTIN 5 MG TABLET PO SCH (08:25)
[2017-09-26] MEDS: TAMSULOSIN 0.4 MG CAP.ER.24H. PO SCH (08:25)
[2017-09-26] MEDS: OXYBUTYNIN CHLORIDE 5 MG TABLET PO SCH ×2 (08:25→21:04)
[2017-09-26] MEDS: LUBIPROSTONE 24 MCG CAPSULE PO SCH ×2 (08:26→17:43)
[2017-09-26] MEDS: DIVALPROEX SODIUM 250 MG TABLET.DR. PO SCH ×2 (08:27→21:04)
[2017-09-26] MEDS ORDERED: DIVALPROEX SODIUM 250 MG TABLET.DR. PO SCH (09:00)
--- NOTE | 2017-09-26 12:14 | NUR ---
Behavior Intervention Response and Plan: BIRP Note: Behavior: Assumed Care of patient, patient located in Hallway at shift change. Patient exhibited the following behavior Restless, Wandering, Irritable. Brief assessment on rounds of vital signs, medication needs, lab studies, and pain. Treatment plan problems . Intervention: Patient assessed and the following interventions initiated safety checks 15 Minute Checks Cognitive Assessment , Head to toe Assessment , Medications. Response: After interactions and interventions patient responded in the following manner, Disorganized , Wandering ,Compliant. Continue to assess behaviors and condition will continue to monitor throughout the shift as needed. Patient educated on ADL's, and hand hygiene. Plan: Continue to monitor Master Treatment Plan for patient's progress toward short term goals of Decreased Agitation, Decreased Anxiety, senior care goals to return to previous living setting vs placement. Continue to assess patient for changes in above assessment. Monitor for medication needs, pain, and safety concerns. Hourly rounding performed to ensure safe environment.
[2017-09-26 16:14] VITALS: BP 107/70
--- NOTE | 2017-09-26 18:27 | NUR ---
pt up in wc for meals or ambulating with staff. pt calmer today. compliant with meds. asking staff to use phone. WEB APPLICATIONS ARCHITECT set up translation phone and is talking with pt.
--- NOTE | 2017-09-26 20:00 | NUR ---
Behavior Intervention Response and Plan: BIRP Note: Behavior: Assumed Care of patient, patient located in Day Room at shift change. Patient exhibited the following behavior Calm, Compliant, Cooperative. Brief assessment on rounds of vital signs, medication needs, lab studies, and pain. Treatment plan problems . Intervention: Patient assessed and the following interventions initiated safety checks 15 Minute Checks Cognitive Assessment , Head to toe Assessment , Medications. Response: After interactions and interventions patient responded in the following manner, Cooperative , Withdrawn ,Calm. Continue to assess behaviors and condition will continue to monitor throughout the shift as needed. Patient educated on ADL's, and hand hygiene. Plan: Continue to monitor Master Treatment Plan for patient's progress toward short term goals of Decreased Agitation, Decreased Anxiety, jail goals to return to previous living setting vs placement. Continue to assess patient for changes in above assessment. Monitor for medication needs, pain, and safety concerns. Hourly rounding performed to ensure safe environment.
[2017-09-26] MEDS: QUEtiapine 100 MG TABLET. PO SCH (21:04)
[2017-09-26] MEDS: SIMVASTATIN 20 MG TABLET PO SCH (21:04)
[2017-09-27 05:36] VITALS: BP 108/56
[2017-09-27] MEDS: LEVOTHYROXINE 75 MCG TABLET PO SCH (05:42)
[2017-09-27] MEDS: BENZONATATE 100 MG CAPSULE. PO SCH ×3 (08:26→21:25)
[2017-09-27] MEDS: POLYETHYLENE GLYCOL 3350 17 GM PACKET. PO SCH (08:26)
[2017-09-27] MEDS: TAMSULOSIN 0.4 MG CAP.ER.24H. PO SCH (08:26)
[2017-09-27] MEDS: metFORMIN 500 MG TABLET PO SCH (08:26)
[2017-09-27] MEDS: OXYBUTYNIN CHLORIDE 5 MG TABLET PO SCH ×2 (08:27→21:15)
[2017-09-27] MEDS: ASPIRIN ENTERIC COATED 81 MG TABLET.DR. PO SCH (08:27)
[2017-09-27] MEDS: DIVALPROEX SODIUM 250 MG TABLET.DR. PO SCH ×2 (08:27→21:15)
[2017-09-27] MEDS: glipiZIDE 5 MG TABLET PO SCH (08:27)
[2017-09-27] MEDS: LINAGLIPTIN 5 MG TABLET PO SCH (08:27)
[2017-09-27] MEDS: BACLOFEN 10 MG TABLET PO SCH ×3 (08:27→21:15)
[2017-09-27] MEDS: QUEtiapine 25 MG TABLET. PO SCH ×2 (08:27→17:53)
[2017-09-27] MEDS: SERTRALINE 50 MG TABLET. PO SCH (08:28)
[2017-09-27] MEDS: amLODIPine BESYLATE 5 MG TABLET PO SCH (08:43)
[2017-09-27] MEDS: LUBIPROSTONE 24 MCG CAPSULE PO SCH ×2 (08:43→17:53)
--- NOTE | 2017-09-27 10:17 | NUR ---
Behavior Intervention Response and Plan: BIRP Note: Behavior: Assumed Care of patient, patient located in Hallway at shift change. Patient exhibited the following behavior Restless, Wandering, Irritable. Brief assessment on rounds of vital signs, medication needs, lab studies, and pain. Treatment plan problems . Intervention: Patient assessed and the following interventions initiated safety checks 15 Minute Checks Cognitive Assessment , Head to toe Assessment , Medications. Response: After interactions and interventions patient responded in the following manner, Disorganized , Wandering ,Compliant. Continue to assess behaviors and condition will continue to monitor throughout the shift as needed. Patient educated on ADL's, and hand hygiene. Plan: Continue to monitor Master Treatment Plan for patient's progress toward short term goals of Decreased Agitation, Decreased Anxiety, senior living goals to return to previous living setting vs placement. Continue to assess patient for changes in above assessment. Monitor for medication needs, pain, and safety concerns. Hourly rounding performed to ensure safe environment.
--- NOTE | 2017-09-27 10:19 | NUR ---
Behavior Intervention Response and Plan: BIRP Note: Behavior: Assumed Care of patient, patient located in Hallway at shift change. Patient exhibited the following behavior Restless, Wandering, Irritable. Brief assessment on rounds of vital signs, medication needs, lab studies, and pain. Treatment plan problems . Intervention: Patient assessed and the following interventions initiated safety checks 15 Minute Checks Cognitive Assessment , Head to toe Assessment , Medications. Response: After interactions and interventions patient responded in the following manner, Disorganized , Wandering ,Compliant. Continue to assess behaviors and condition will continue to monitor throughout the shift as needed. Patient educated on ADL's, and hand hygiene. Plan: Continue to monitor Master Treatment Plan for patient's progress toward short term goals of Decreased Agitation, Decreased Anxiety, [facility] goals to return to previous living setting vs placement. Continue to assess patient for changes in above assessment. Monitor for medication needs, pain, and safety concerns. Hourly rounding performed to ensure safe environment.
[2017-09-27 16:30] VITALS: BP 133/67
[2017-09-27] MEDS ORDERED: ACET325T9 PO (16:52)
[2017-09-27] MEDS ORDERED: DIVA500T4 PO (16:56)
[2017-09-27] MEDS ORDERED: MAG355OR12 PO (16:57)
[2017-09-27] MEDS ORDERED: MAGN2400 PO (16:59)
[2017-09-27] MEDS ORDERED: MENT1ADH29 TP (17:02)
[2017-09-27] MEDS ORDERED: OLAN5TAB5 PO (17:40)
[2017-09-27] MEDS ORDERED: QUET25TA5 PO (17:42)
[2017-09-27] MEDS ORDERED: CHOL500021 PO (17:45)
[2017-09-27] MEDS ORDERED: CHOLECALCIFEROL (VITAMIN D3) 50,000 UNIT CAPSULE PO SCH (17:45)
--- NOTE | 2017-09-27 18:36 | NUR ---
pt up with 1:1. more steady on feet. compliant with meds and cares. pt talked with on phone in am. visit went well. anxious at lunch. zydis given. asking for phone several times in afternoon. started to get angry with staff at supper. wanted to call . ACCOUNTING SYSTEMS ANALYST dialed phone for pt and pt did well with visit.
--- NOTE | 2017-09-27 20:00 | NUR ---
Behavior Intervention Response and Plan: BIRP Note: Behavior: Assumed Care of patient, patient located in Day Room at shift change. Patient exhibited the following behavior Calm, Compulsive, Cooperative. Brief assessment on rounds of vital signs, medication needs, lab studies, and pain. Treatment plan problems . Intervention: Patient assessed and the following interventions initiated safety checks 15 Minute Checks Cognitive Assessment , Head to toe Assessment , Medications. Response: After interactions and interventions patient responded in the following manner, Cooperative , Compliant ,Wandering. Continue to assess behaviors and condition will continue to monitor throughout the shift as needed. Patient educated on ADL's, and hand hygiene. Plan: Continue to monitor Master Treatment Plan for patient's progress toward short term goals of Decreased Agitation, Decreased Anxiety, terminal supervisor goals to return to previous living setting vs placement. Continue to assess patient for changes in above assessment. Monitor for medication needs, pain, and safety concerns. Hourly rounding performed to ensure safe environment.
--- NOTE | 2017-09-27 20:13 | PDOC ---
Exam Note: Will Note: Late entry for date of service September 26, 2017. Please also refer to the separate dictated note~for this date of service dictated separately.~Patient seen individually. Discussed the patient with Nursing staff reviewed the chart.~ Reviewed interim history and current functioning. Reviewed vital signs,~Labs/ Radiology~and current medications noted below. Continue current treatment with the changes noted in the dictated addendum note Assessment: Vital Signs: VS - Last 72 Hours, by Label Date Time Temp Pulse Resp B/P (MAP) Pulse Ox O2 Delivery O2 Flow Rate FiO2 09/27/17 16:30 98.7 70 16 133/67 (89) 100 09/27/17 08:43 73 108/56 09/27/17 05:36 98.0 73 18 108/56 (73) 97 09/26/17 16:14 98.1 66 18 107/70 (82) 98 09/26/17 08:24 74 124/70 09/26/17 06:23 97.5 74 18 124/70 (88) 99 09/25/17 15:52 98.4 82 16 94/59 (71) 100 09/25/17 07:44 87 169/94 09/25/17 05:45 97.3 87 18 169/94 (119) 97 Vital Signs Date Time Temp Pulse Resp B/P (MAP) Pulse Ox O2 Delivery O2 Flow Rate FiO2 09/27/17 16:30 98.7 70 16 133/67 (89) 100 I&O Intake and Output 09/27/17 07:00 Intake Total 840 ml Balance 840 ml Intake Oral 840 ml # Bowel Movements 1 Labs: Laboratory Tests Test 09/27/17 07:47 Glucose (Fingerstick) 164 mg/dL (70-99) H Current Medications: Meds: Current Medications Acetaminophen (Tylenol) 650 mg PRN Q6HRS PRN PO PAIN / TEMP Last administered on 09/25/17at 07:44; Start 09/25/17 at 04:45 Multi-Ingredient Ointment (Analgesic [place]) 1 radha PRN QID PRN TP MUSCLE PAIN; Start 09/25/17 at 04:45 Al Hydroxide/Mg Hydroxide (Mylanta Plus Xs) 15 ml PRN AFTMEALHC PRN PO DYSPEPSIA; Start 09/25/17 at 04:45 Magnesium Hydroxide (Milk Of Magnesia) 2,400 mg PRN QHS PRN PO CONSTIPATION; Start 09/25/17 at 04:45 Sertraline HCl (Zoloft) 150 mg DAILY PO Last administered on 09/27/17 08:28; Start 09/25/17 at 09:00 Divalproex Sodium (Depakote) 500 mg BID PO ; Start 09/26/17 at 09:00; Stop at 09:00; Status DC Quetiapine Fumarate (SEROquel) 100 mg QHS PO Last administered on 09/26/17at 21: 04; Start 09/25/17 at 21:00 Trazodone HCl (Desyrel) 50 mg PRN QHS PRN PO INSOMNIA; Start 09/25/17 at 05:30 Lorazepam (Ativan) 1 mg PRN BID PRN PO ANXIETY / AGITATION Last administered on 09/25/17 08:00; Start 09/25/17 at 05:45 Levothyroxine Sodium (Synthroid) 75 mcg DAILY06 PO Last administered on 05:42; Start 09/25/17 at 06:00 Lubiprostone (Amitiza) 24 mcg BIDWMEALS PO Last administered on 09/27/17 17:53 ; Start 09/25/17 at 08:00 Tamsulosin HCl (Flomax) 0.4 mg DAILY PO Last administered on 09/27/17 08:26; Start 09/25/17 at 09:00 Amlodipine Besylate (Norvasc) 5 mg DAILY PO Last administered on 09/26/17 08:24 ; Start 09/25/17 at 09:00 Aspirin (Aspirin Enteric Coated) 81 mg DAILYWBKFT PO Last administered on 08:27; Start 09/25/17 at 08:00 Baclofen (Lioresal) 10 mg TID PO Last administered on 09/27/17 14:53; Start at 09:00 Benzonatate (Tessalon Perle) 100 mg [id number] PO Last administered on 09/27/17 14 :53; Start 09/25/17 at 09:00 Glipizide (Glucotrol) 2.5 mg DAILY08 PO Last administered on 6/10/18at 08:27; Start 09/25/17 at 08:00 Metformin HCl (Glucophage) 500 mg DAILY08 PO Last administered on 09/27/17 08: 26; Start 09/25/17 at 08:00 Polyethylene Glycol (miraLAX) 17 gm DAILY PO Last administered on 09/27/17 08: 26; Start 09/25/17 at 09:00 Simvastatin (Zocor) 20 mg HS PO Last administered on 09/26/17 21:04; Start 09/25 at 21:00 Linagliptin (Tradjenta) 5 mg DAILY PO Last administered on 09/27/17 08:27; Start 09/25/17 at 09:00 Oxybutynin Chloride (Ditropan) 5 mg BID PO Last administered on 09/27/17 08:27 ; Start 09/25/17 at 09:00 Olanzapine (ZyPREXA ZYDIS) 2.5 mg PRN Q2HR PRN PO ANXIETY / AGITATION Last administered on 09/27/17 14:53; Start 09/25/17 at 11:15 Divalproex Sodium (Depakote) 500 mg DAILY PO Last administered on 09/27/17 08: 27; Start 09/26/17 at 09:00 Divalproex Sodium (Depakote) 750 mg QHS PO Last administered on 09/26/17 21:04 ; Start 09/25/17 at 21:00 Quetiapine Fumarate (SEROquel) 25 mg BID@0900,1700 PO Last administered on 09/27 17:53; Start 09/25/17 at 17:00 Vitamin D (Vitamin D3) 50,000 unit WEEKLY PO Last administered on 09/27/17 17: 53; Start 09/27/17 at 17:45 Active Scripts Active Reported D3-50 (Cholecalciferol (Vitamin D3)) 50,000 Unit Capsule 50,000 Unit PO WEEKLY Seroquel (Quetiapine Fumarate) 25 Mg Tablet 25 Mg PO BID Zyprexa Zydis (Olanzapine) 5 Mg Tab.rapdis 2.5 Mg PO PRN Q2HR PRN [place] Ultra Strength (Menthol) 1 Each Adh..patch 1 Each TP PRN QID PRN Milk Of Magnesia (Magnesium Hydroxide) 2,400 Mg/10 Ml Oral.susp 2,400 Mg PO PRN QHS PRN Maalox Maximum Strength Susp (Mag Hydrox/Al Hydrox/Simeth) 355 Ml Oral.susp 15 Ml PO PRN AFTMEALHC PRN Depakote Er (Divalproex Sodium) 500 Mg Tab.er.24h 750 Mg PO Tylenol (Acetaminophen) 325 Mg Tablet 650 Mg PO PRN Q6HRS PRN Ativan (Lorazepam) 1 Mg Tablet 1 Tab PO BID PRN Detrol La (Tolterodine Tartrate) 2 Mg Cap.er.24h 2 Mg PO DAILY Trazodone Hcl 50 Mg Tablet 50 Mg PO QHS PRN Polyethylene Glycol 3350 2,500 Gm Powder 17 Gm PO DAILY Januvia (Sitagliptin Phosphate) 50 Mg Tablet 50 Mg PO DAILY Zoloft (Sertraline Hcl) 50 Mg Tablet 150 Mg PO DAILY Simvastatin 20 Mg Tablet 20 Mg PO HS Benzonatate 100 Mg Capsule 100 Mg PO TID Aspirin Ec (Aspirin) 81 Mg Tablet.dr 81 Mg PO DAILY Seroquel (Quetiapine Fumarate) 50 Mg Tablet 100 Mg PO QHS Amlodipine Besylate 5 Mg Tablet 5 Mg PO DAILY Divalproex Sodium 500 Mg Tablet.dr 500 Mg PO BID Levothyroxine Sodium 75 Mcg Tablet 75 Mcg PO DAILY06 Baclofen 10 Mg Tablet 10 Mg PO TID Metformin Hcl 500 Mg Tablet 500 Mg PO DAILY Amitiza (Lubiprostone) 24 Mcg Capsule 24 Mcg PO BID Tamsulosin Hcl 0.4 Mg Cap.er.24h 0.4 Mg PO DAILY Glipizide 5 Mg Tablet 2.5 Mg PO DAILY I have reviewed the current psychotropics carefully including drug interactions. Risk benefit ratio favors no change other than as noted in my dictated progress note. Diagnosis: Problems: (1) Anxiety disorder (2) Impulse control disorder (3) Dementia, vascular, with depression (4) Dementia, vascular, with delusions (5) Dementia in Alzheimer's disease with depression (6) Dementia in Alzheimer's disease with delusions SARAH BLANTON MD Sep 27, 2017 20:13
--- NOTE | 2017-09-27 20:14 | PDOC ---
Exam Note: Will Note: Please also refer to the separate dictated note~for this date of service dictated separately.~Patient seen individually. Discussed the patient with Nursing staff reviewed the chart.~Reviewed interim history and current functioning. Reviewed vital signs,~Labs/ Radiology~and current medications noted below. Continue current treatment with the changes noted in the dictated addendum note Assessment: Vital Signs: Vital Signs Date Time Temp Pulse Resp B/P (MAP) Pulse Ox O2 Delivery O2 Flow Rate FiO2 09/27/17 16:30 98.7 70 16 133/67 (89) 100 I&O Intake and Output 09/27/17 07:00 Intake Total 840 ml Balance 840 ml Intake Oral 840 ml # Bowel Movements 1 Labs: Laboratory Tests Test 09/27/17 07:47 Glucose (Fingerstick) 164 mg/dL (70-99) H Current Medications: Meds: Current Medications Acetaminophen (Tylenol) 650 mg PRN Q6HRS PRN PO PAIN / TEMP Last administered on 09/25/17at 07:44; Start 09/25/17 at 04:45 Multi-Ingredient Ointment (Analgesic [place]) 1 radha PRN QID PRN TP MUSCLE PAIN; Start 09/25/17 at 04:45 Al Hydroxide/Mg Hydroxide (Mylanta Plus Xs) 15 ml PRN AFTMEALHC PRN PO DYSPEPSIA; Start 09/25/17 at 04:45 Magnesium Hydroxide (Milk Of Magnesia) 2,400 mg PRN QHS PRN PO CONSTIPATION; Start 09/25/17 at 04:45 Sertraline HCl (Zoloft) 150 mg DAILY PO Last administered on 09/27/17at 08:28; Start 09/25/17 at 09:00 Divalproex Sodium (Depakote) 500 mg BID PO ; Start 09/26/17 at 09:00; Stop at 09:00; Status DC Quetiapine Fumarate (SEROquel) 100 mg QHS PO Last administered on 09/26/17at 21: 04; Start 09/25/17 at 21:00 Trazodone HCl (Desyrel) 50 mg PRN QHS PRN PO INSOMNIA; Start 09/25/17 at 05:30 Lorazepam (Ativan) 1 mg PRN BID PRN PO ANXIETY / AGITATION Last administered on 6/8/18at 08:00; Start 09/25/17 at 05:45 Levothyroxine Sodium (Synthroid) 75 mcg DAILY06 PO Last administered on 05:42; Start 09/25/17 at 06:00 Lubiprostone (Amitiza) 24 mcg BIDWMEALS PO Last administered on 09/27/17 17:53 ; Start 09/25/17 at 08:00 Tamsulosin HCl (Flomax) 0.4 mg DAILY PO Last administered on 09/27/17 08:26; Start 09/25/17 at 09:00 Amlodipine Besylate (Norvasc) 5 mg DAILY PO Last administered on 09/26/17 08:24 ; Start 09/25/17 at 09:00 Aspirin (Aspirin Enteric Coated) 81 mg DAILYWBKFT PO Last administered on 08:27; Start 09/25/17 at 08:00 Baclofen (Lioresal) 10 mg TID PO Last administered on 09/27/17 14:53; Start at 09:00 Benzonatate (Tessalon Perle) 100 mg SOC014 PO Last administered on 09/27/17 14 :53; Start 09/25/17 at 09:00 Glipizide (Glucotrol) 2.5 mg DAILY08 PO Last administered on 09/27/17 08:27; Start 09/25/17 at 08:00 Metformin HCl (Glucophage) 500 mg DAILY08 PO Last administered on 09/27/17 08: 26; Start 09/25/17 at 08:00 Polyethylene Glycol (miraLAX) 17 gm DAILY PO Last administered on 09/27/17 08: 26; Start 09/25/17 at 09:00 Simvastatin (Zocor) 20 mg HS PO Last administered on 09/26/17 21:04; Start 09/25 at 21:00 Linagliptin (Tradjenta) 5 mg DAILY PO Last administered on 09/27/17 08:27; Start 09/25/17 at 09:00 Oxybutynin Chloride (Ditropan) 5 mg BID PO Last administered on 09/27/17 08:27 ; Start 09/25/17 at 09:00 Olanzapine (ZyPREXA ZYDIS) 2.5 mg PRN Q2HR PRN PO ANXIETY / AGITATION Last administered on 09/27/17at 14:53; Start 09/25/17 at 11:15 Divalproex Sodium (Depakote) 500 mg DAILY PO Last administered on 09/27/17at 08: 27; Start 09/26/17 at 09:00 Divalproex Sodium (Depakote) 750 mg QHS PO Last administered on 09/26/17at 21:04 ; Start 09/25/17 at 21:00 Quetiapine Fumarate (SEROquel) 25 mg BID@0900,1700 PO Last administered on 09/27at 17:53; Start 09/25/17 at 17:00 Vitamin D (Vitamin D3) 50,000 unit WEEKLY PO Last administered on 09/27/17at 17: 53; Start 09/27/17 at 17:45 Active Scripts Active Reported D3-50 (Cholecalciferol (Vitamin D3)) 50,000 Unit Capsule 50,000 Unit PO WEEKLY Seroquel (Quetiapine Fumarate) 25 Mg Tablet 25 Mg PO BID Zyprexa Zydis (Olanzapine) 5 Mg Tab.rapdis 2.5 Mg PO PRN Q2HR PRN [place] Ultra Strength (Menthol) 1 Each Adh..patch 1 Each TP PRN QID PRN Milk Of Magnesia (Magnesium Hydroxide) 2,400 Mg/10 Ml Oral.susp 2,400 Mg PO PRN QHS PRN Maalox Maximum Strength Susp (Mag Hydrox/Al Hydrox/Simeth) 355 Ml Oral.susp 15 Ml PO PRN AFTMEALHC PRN Depakote Er (Divalproex Sodium) 500 Mg Tab.er.24h 750 Mg PO Tylenol (Acetaminophen) 325 Mg Tablet 650 Mg PO PRN Q6HRS PRN Ativan (Lorazepam) 1 Mg Tablet 1 Tab PO BID PRN Detrol La (Tolterodine Tartrate) 2 Mg Cap.er.24h 2 Mg PO DAILY Trazodone Hcl 50 Mg Tablet 50 Mg PO QHS PRN Polyethylene Glycol 3350 2,500 Gm Powder 17 Gm PO DAILY Januvia (Sitagliptin Phosphate) 50 Mg Tablet 50 Mg PO DAILY Zoloft (Sertraline Hcl) 50 Mg Tablet 150 Mg PO DAILY Simvastatin 20 Mg Tablet 20 Mg PO HS Benzonatate 100 Mg Capsule 100 Mg PO TID Aspirin Ec (Aspirin) 81 Mg Tablet.dr 81 Mg PO DAILY Seroquel (Quetiapine Fumarate) 50 Mg Tablet 100 Mg PO QHS Amlodipine Besylate 5 Mg Tablet 5 Mg PO DAILY Divalproex Sodium 500 Mg Tablet.dr 500 Mg PO BID Levothyroxine Sodium 75 Mcg Tablet 75 Mcg PO DAILY06 Baclofen 10 Mg Tablet 10 Mg PO TID Metformin Hcl 500 Mg Tablet 500 Mg PO DAILY Amitiza (Lubiprostone) 24 Mcg Capsule 24 Mcg PO BID Tamsulosin Hcl 0.4 Mg Cap.er.24h 0.4 Mg PO DAILY Glipizide 5 Mg Tablet 2.5 Mg PO DAILY I have reviewed the current psychotropics carefully including drug interactions. Risk benefit ratio favors no change other than as noted in my dictated progress note. Diagnosis: Problems: (1) Anxiety disorder (2) Impulse control disorder (3) Dementia, vascular, with depression (4) Dementia, vascular, with delusions (5) Dementia in Alzheimer's disease with depression (6) Dementia in Alzheimer's disease with delusions SARAH BLANTON MD Sep 27, 2017 20:14
[2017-09-27] MEDS: QUEtiapine 100 MG TABLET. PO SCH (21:14)
[2017-09-27] MEDS: SIMVASTATIN 20 MG TABLET PO SCH (21:15)
--- NOTE | 2017-09-27 21:20 | NUR ---
Pt in day room has been calm and cooperative requested by hand sign to use phone and said call . Pt became a bit agitated while phone being located and being called. Family accepted call and spoke with pt who was calm after call, compliant with meds and is now using walker appropriately. No sign of any aggression or attempt of self harm.
[2017-09-28] MEDS ORDERED: METH29OI TP (01:10)
[2017-09-28 06:08] VITALS: BP 110/62
[2017-09-28] MEDS: LEVOTHYROXINE 75 MCG TABLET PO SCH (06:12)
[2017-09-28] MEDS: ASPIRIN ENTERIC COATED 81 MG TABLET.DR. PO SCH (08:52)
[2017-09-28] MEDS: OXYBUTYNIN CHLORIDE 5 MG TABLET PO SCH (08:52)
[2017-09-28] MEDS: metFORMIN 500 MG TABLET PO SCH (08:52)
[2017-09-28] MEDS: DIVALPROEX SODIUM 250 MG TABLET.DR. PO SCH (08:52)
[2017-09-28] MEDS: TAMSULOSIN 0.4 MG CAP.ER.24H. PO SCH (08:52)
[2017-09-28] MEDS: BACLOFEN 10 MG TABLET PO SCH (08:52)
[2017-09-28] MEDS: glipiZIDE 5 MG TABLET PO SCH (08:52)
[2017-09-28] MEDS: LUBIPROSTONE 24 MCG CAPSULE PO SCH (08:52)
[2017-09-28] MEDS: SERTRALINE 50 MG TABLET. PO SCH (08:53)
[2017-09-28] MEDS: POLYETHYLENE GLYCOL 3350 17 GM PACKET. PO SCH (08:53)
[2017-09-28] MEDS: BENZONATATE 100 MG CAPSULE. PO SCH (08:53)
[2017-09-28] MEDS: QUEtiapine 25 MG TABLET. PO SCH (08:53)
[2017-09-28] MEDS: LINAGLIPTIN 5 MG TABLET PO SCH (08:53)
[2017-09-28] MEDS: amLODIPine BESYLATE 5 MG TABLET PO SCH (09:00)
[2017-09-28] MEDS: ACETAMINOPHEN 325 MG TABLET PO PRN (09:02)
--- NOTE | 2017-09-28 10:39 | PN ---
DATE: 09/26/2017 This is a late entry for 09/26/2017 and covers elements not covered in my initial note of 09/26/2017. The plan was for the patient to return to the halfway on 09/25/2017, but he was not accepted back there, was not discharged consequently. His Seroquel was increased, as was the Depakote since the valproic acid level was therapeutic. On the unit, he has done reasonably well all day until the evening when staff attempted to use the translation phone, which made him agitated and confused, but he was alert x 1. REVIEW OF SYSTEMS: No CV, , pulmonary, eye system symptoms on review. Reliability poor. MENTAL STATUS EXAM: Oriented to himself. Insight, judgment, recent and remote memory, attention, concentration, fund of knowledge poor, consistent with his diagnosis, but he has not been banging his head, no active danger to self or others. IMPRESSION: Unchanged from initial note. PLAN: Continue psychotropics as mentioned in my initial note. Follow labs level on the Depakote. Adjust as indicated. MAN Chiara BLANTON MD DR: CHRIS/sofya JOB#: [id number] / [id number]
--- NOTE | 2017-09-28 10:39 | PN ---
DATE: 09/27/2017 PSYCHIATRIC PROGRESS NOTE This is a late entry 09/27/2017, covers elements not covered in my initial note 09/27/2017. SUBJECTIVE: I met with the patient in the evening. Per nursing report, the patient has done better. When he gets somewhat upset his was called over the phone and once he talks to her, he is much calmer. He does get agitated when he talks through the torque tester. The torque tester had told the nursing staff that his conversation was disorganized. He is extremely confused and this would be consistent with his diagnoses of major neurocognitive disorder, Alzheimer, vascular, probably the latter more likely with delusion, depression. REVIEW OF SYSTEMS: No CV, , pulmonary, eye, ENT system symptoms on review. Reliability poor. He is pleasant, smiling, shaking my hand as I met with him, but fairly oblivious of the circumstances. MENTAL STATUS EXAM: Oriented to himself. Insight, judgment, recent and remote memory, attention, concentration, fund of knowledge poor, consistent with his diagnoses. IMPRESSION: Major neurocognitive disorder, Alzheimer, vascular with delusion, depression, behavioral disturbance; anxiety disorder, unspecified; impulse control disorder, unspecified. PLAN: Continue psychotropics mentioned in my initial note. Depakote has been adjusted. Repeat labs are awaited. He is on Seroquel, which was adjusted as well along with Zoloft and trazodone p.r.n. for insomnia. Consideration may be given to tapering the lorazepam at some stage once he is stable on the Depakote and Seroquel since the lorazepam/benzodiazepine could be causing or contributing to paradoxical disinhibition. MAN Chiara BLANTON MD DR: CHRIS/sofya JOB#: [id number] / [id number]
--- NOTE | 2017-09-28 10:44 | NUR ---
[facility] Social Work Discharge Planning Form Patient Name MIKAYLA ROMANO Admit Date: 09/25/17 DISCHARGE PLAN Discharge Destination: [facility] Assessment: Not Needed Level II Assessment: Not Needed Transportation: 11:30 Special Instructions/Notes: DISCHARGE TO FACILITY Facility: [facility] Address: [address] [place] [address] PCP: at facility Psychiatrist: at facility Psychiatrist/Mental Health Follow Up at facility Primary Care Follow Up at facility
--- NOTE | 2017-09-28 11:15 | NUR ---
Transition Record was faxed to follow-up provider with the following elements: Reason for admission, procedures, tests, principal diagnosis, pending studies, patient instructions, 10/11 contact information for unit, phone number to obtain pending test results, plan for follow-up care, physician follow-up, advanced directive information, and medication list with dose, duration and instructions. This information was included in the following documents: History and physical, lab results, study results, progress notes, social work planning form, DC instruction form, patient visit summary, and medication reconciliation form. Date & time record faxed:[id number] 09/28/2017 Record faxed to:[facility] Record discussed with/ report given to: Attempted to call report. Spoke to temporary receptionist who made an attempt 3 times to get in touch with staff. I was on hold a total of 12 minutes. [employer] was unable to reach staff. She stated she would have them call.
--- NOTE | 2017-09-28 11:42 | NUR ---
Behavior Intervention Response and Plan: BIRP Note: Behavior: Assumed Care of patient, patient located in hallway at shift change. Patient exhibited the following behavior anxious, wandering, disorganized. Language barrier Brief assessment on rounds of vital signs, medication needs, lab studies, and pain. Treatment plan problems . Intervention: Patient assessed and the following interventions initiated safety checks 15 Minute Checks Cognitive Assessment , Head to toe Assessment , Medications. Response: After interactions and interventions patient responded in the following manner, cooperative, calm, disorganized. Language barrier. Continue to assess behaviors and condition will continue to monitor throughout the shift as needed. Patient educated on ADL's, and hand hygiene. Plan: Continue to monitor Master Treatment Plan for patient's progress toward short term goals of Decreased Agitation, Decreased Anxiety, usp goals to return to previous living setting vs placement. Continue to assess patient for changes in above assessment. Monitor for medication needs, pain, and safety concerns. Hourly rounding performed to ensure safe environment.
--- NOTE | 2017-09-29 13:19 | DS ---
DATE OF DISCHARGE: 09/28/2017 DISCHARGE SUMMARY/PSYCHIATRIC PROGRESS NOTE This late entry 09/28/2017, covers elements not covered in my initial note. REASON FOR ADMISSION: Please refer to the admission history for details. Briefly, the patient is a 67-year-old male admitted via the Emergency Room at [facility] where he presented from [facility] on account of marked mood lability and agitation. He was hitting his head on the floor and wall. He was quite confused and speaks essentially in Farsi, which was worsening his mood lability and agitation due to communication problems. Over and above this he is quite confused as remarked by the interpreters while he was on our unit. He does have a history of major neurocognitive disorder, Alzheimer, vascular with delusion, depression. SIGNIFICANT FINDINGS AND CLINICAL COURSE: Following admission, the patient was seen daily individually by myself from a psychiatric standpoint, medical followup per Dr. Cobb/Dr. Barry. Given the patient's marked psychotic symptoms behaviors that were deemed dangerous prior to admission. History of mood swings. Adjustments were made in his psychotropics and he seemed to respond to a combination of Depakote 500 mg b.i.d., Seroquel 50 mg at bedtime, Zoloft 50 mg a day, trazodone 50 mg at bedtime p.r.n. He still remained on Ativan 1 mg b.i.d. that he was taking prior to admission, but once he is stable back at the alf, this should be gradually tapered and discontinued since it could be contributing somewhat to his paradoxical disinhibition. REVIEW OF SYSTEMS: Prior to discharge on 09/28/2017; no CV, , pulmonary system symptoms on review. Not forthcoming on questioning. MENTAL STATUS EXAM: Oriented to himself. Insight, judgment, recent and remote memory, attention, concentration, fund of knowledge poor, consistent with his diagnoses. Communication and language barriers remains significant. CONDITION AT DISCHARGE: Improved. FINAL DIAGNOSES: Major neurocognitive disorder, Alzheimer, vascular with delusion, depression, behavioral disturbance; anxiety disorder, unspecified; impulse control disorder, unspecified. DISCHARGE MEDICATIONS: Please refer to the . DISCHARGE INSTRUCTIONS: Outpatient psychiatric and medical followup at the alf. MAN Chiara BLANTON MD DR: CHRIS/sofya JOB#: [id number] / [id number]
== END 2017-09-28 11:15 | disposition home or self-care (01) | DRG 57 ==
LOC: GEROPSY 04:15 → EDBD 04:15
PROVIDERS: ADMIT Psychiatry & Neurology Psychiatry; ATTEND Psychiatry & Neurology Psychiatry
DX: G30.9 Alzheimer's disease, unspecified (principal); F01.51 Vascular dementia, unspecified severity, with behavioral disturbance; F02.81 Dementia in other diseases classified elsewhere, unspecified severity, with behavioral disturbance; N18.9 Chronic kidney disease, unspecified; F63.9 Impulse disorder, unspecified; F32.9 Major depressive disorder, single episode, unspecified; E11.22 Type 2 diabetes mellitus with diabetic chronic kidney disease; E03.9 Hypothyroidism, unspecified; E55.9 Vitamin D deficiency, unspecified; F41.9 Anxiety disorder, unspecified; I12.9 Hypertensive chronic kidney disease with stage 1 through stage 4 chronic kidney disease, or unspecified chronic kidney disease; N32.81 Overactive bladder; N40.0 Benign prostatic hyperplasia without lower urinary tract symptoms; Z79.899 Other long term (current) drug therapy
CPT/HCPCS: 36415; 80053; 80061; 80164; 81001; 82306; 82607; 82947; 83036; 83540; 83550; 83735; 84436; 84443; 84480; 85025; 86592